=== PATIENT | female | born 1940 ===

== ENCOUNTER 2022-12-02 10:10 | Inpatient (IN) | payer OTHER ==
[~2022-12-02] VITALS: Ht 170.2 cm; Wt 122.5 kg
[2022-12-03] MEDS ORDERED: SYNTHROID137 MCG PO (08:32)
[2022-12-03] MEDS ORDERED: GABAPENTIN800 M1 PO (08:32)
[2022-12-09] MEDS ORDERED: BREO ELLIPTA I1 EACH (10:11)
[2022-12-09] MEDS ORDERED: CLONAZEPAM0.5 MG (10:11)
[2022-12-09] MEDS ORDERED: HYDRODIURIL12.5 MG (10:11)
[2022-12-09] MEDS ORDERED: DICLOFENAC SODI75 MG (10:11)
[2022-12-10] MEDS ORDERED: XARELTO10 MG PO (07:56)
[2022-12-10] MEDS ORDERED: OXYC1TAB9 PO (07:56)
[2022-12-10] MEDS ORDERED: BACTRIM DS TAB1 EACH PO (07:56)
[2022-12-10] MEDS ORDERED: INTEGRA PLUS C1 EACH PO (07:56)
== END 2022-12-10 18:37 | DRG 470 ==
LOC: O/R 12-08 06:30 → SURH 12-08 06:30
PROVIDERS: ADMIT Orthopaedic Surgery Sports Medicine; ATTEND Orthopaedic Surgery Sports Medicine
PROC: 0SRC0J9 Replacement of Right Knee Joint with Synthetic Substitute, Cemented, Open Approach (ICD-10-PCS; principal; 2022-12-08 13:30)
DX: M17.11 Unilateral primary osteoarthritis, right knee (principal); E03.9 Hypothyroidism, unspecified